=== PATIENT | female | born 1970 | race African-American/Black ===

== ENCOUNTER 2018-03-30 07:44 | Inpatient (IN) | payer MEDICARE ==
[2018-03-30] VITALS (8 sets, daily range): BP systolic 92–105; BP diastolic 47–70
[~2018-03-30] VITALS: Ht 175.3 cm; Wt 102.1 kg
[2018-03-30] MEDS ORDERED: ABILIFY20 MG PO (10:44)
[2018-03-30] MEDS ORDERED: CYMBALTA60 MG (10:49)
[2018-03-30] MEDS ORDERED: CATAPRES0.2 MG PO (10:49)
[2018-03-30] MEDS ORDERED: CYCLOBENZAPRINE10 MG (10:50)
[2018-03-30] MEDS ORDERED: DEPAKOTE500 MG PO (10:50)
[2018-03-30] MEDS ORDERED: CARDIZEM60 MG (10:50)
[2018-03-30] MEDS ORDERED: LASIX80 MG PO (10:51)
[2018-03-30] MEDS ORDERED: HYDRALAZINE HCL10 MG PO (10:51)
[2018-03-30] MEDS ORDERED: LEVEMIR100 U/M1 SQ (10:52)
[2018-03-30] MEDS ORDERED: METOPROLOL TART50 MG PO (10:53)
[2018-03-30] MEDS ORDERED: LYRICA300 MG PO (10:53)
[2018-03-30] MEDS ORDERED: GLUCOPHAGE500 MG PO (10:53)
[2018-03-30] MEDS ORDERED: NIFEDIPINE ER90 MG PO (10:54)
[2018-03-30] MEDS ORDERED: KLOR-CON M2020 MEQ PO (10:54)
[2018-03-30] MEDS ORDERED: SEROQUEL200 MG PO (10:55)
[2018-03-30 20:17] LABS: BASOPHILS 0.1 % (0-2); EOSINOPHILS 4.2 % (0-7); HEMATOCRIT 34.9 % (36.0-48.0); IMMATURE GRANULOCYTES 0.4 % (0-5); LYMPHOCYTES 30.3 % (15-50); MCH 30.6 pg (26.0-34.0); MCHC 34.4 g/dL (31.0-37.0); MEAN PLATELET VOLUME 10.3 fL (7.4-10.4); MONOCYTES 6.1 % (2-11); NEUTROPHILS 58.9 % (40-80); PLATELET COUNT 199 10x3/uL (130-400); RBC 3.92 10x6/uL (4.00-5.40); RDW 12.9 % (11.5-14.5); WBC 7.4 10x3/uL (4.8-10.8)
[2018-03-30 20:48] LABS: ALBUMIN 3.6 g/dL (3.4-5.0); ALKALINE PHOSPHATASE 115 U/L (46-116); ALT (SGPT) 59 U/L (10-68); BILIRUBIN - TOTAL 0.64 mg/dL (0.2-1.3); CALC OSMOLALITY 297 mosm/kg (275-300); CALCIUM 8.9 mg/dL (8.5-10.1); CARBON DIOXIDE 31.2 mmol/L (21.0-32.0); CHLORIDE - SERUM 97 mmol/L (98-107); CREATININE - SERUM 1.3 mg/dL (0.6-1.3); GLUCOSE 360 mg/dL (74-106); POTASSIUM - SERUM 3.7 mmol/L (3.5-5.1); PROTEIN - SERUM 7.2 g/dL (6.4-8.2); SODIUM 140 mmol/L (136-145); UREA NITROGEN 24 mg/dL (7-18); eGFR NON AFRICAN AMERICAN 47 mL/min (90-120)
[2018-03-30 21:00] LABS: AMYLASE - SERUM 34 U/L (25-115); CKMB 0.8 U/L (0.0-3.6); LIPASE 179 U/L (73-393); MAGNESIUM - SERUM 1.7 mg/dL (1.8-2.4); THYROID STIMULATING HORMONE 2.78 uIU/mL (0.36-3.74); TROPONIN-I < 0.017 ng/mL (0.000-0.060)
[2018-03-30 21:06] LABS: KETONE - SERUM NEGATIVE (NEGATIVE)
[2018-03-31] VITALS (8 sets, daily range): BP systolic 87–132; BP diastolic 45–75; Ht 175.3 cm; Wt 102.1 kg
[2018-03-31 01:26] LABS: APPEARANCE CLEAR (CLEAR); COLOR YELLOW (YELLOW)
[2018-03-31 01:27] LABS: BILIRUBIN NEGATIVE (NEGATIVE); GLUCOSE 1000 mg/dL (NEGATIVE); KETONE NEGATIVE (NEGATIVE); NITRITE NEGATIVE (NEGATIVE); PROTEIN NEGATIVE (NEGATIVE); SPECIFIC GRAVITY 1.005 (1.005-1.020); UROBILINOGEN NORMAL (NORMAL)
[2018-03-31 01:28] LABS: BACTERIA FEW /hpf (NONE SEEN); EPITHELIAL CELLS 0-5 /hpf (0-5); RED CELLS - URINE 0-5 /hpf (0-5); WHITE CELLS - URINE 0-5 /hpf (0-5)
[2018-03-31 05:17] LABS: BASOPHILS 0.1 % (0-2); EOSINOPHILS 4.6 % (0-7); HEMATOCRIT 33.3 % (36.0-48.0); HEMOGLOBIN 11.5 g/dL (12-16); IMMATURE GRANULOCYTES 0.3 % (0-5); MCH 30.7 pg (26.0-34.0); MCHC 34.5 g/dL (31.0-37.0); MCV 88.8 fL (80.0-100.0); MEAN PLATELET VOLUME 10.3 fL (7.4-10.4); MONOCYTES 7.3 % (2-11); NEUTROPHILS 55.7 % (40-80); PLATELET COUNT 202 10x3/uL (130-400); RBC 3.75 10x6/uL (4.00-5.40); RDW 12.9 % (11.5-14.5); WBC 7.4 10x3/uL (4.8-10.8)
[2018-03-31 07:21] LABS: CALC OSMOLALITY 288 mosm/kg (275-300); CALCIUM 8.7 mg/dL (8.5-10.1); CARBON DIOXIDE 26.5 mmol/L (21.0-32.0); CHLORIDE - SERUM 98 mmol/L (98-107); GLUCOSE 313 mg/dL (74-106); SODIUM 137 mmol/L (136-145); UREA NITROGEN 20 mg/dL (7-18)
[2018-03-31 07:25] LABS: CREATININE - SERUM 0.8 mg/dL (0.6-1.3); POTASSIUM - SERUM 4.3 mmol/L (3.5-5.1); eGFR NON AFRICAN AMERICAN 82 mL/min (90-120)
[2018-04-01] VITALS (7 sets, daily range): BP systolic 107–157; BP diastolic 64–91
[2018-04-01 06:21] LABS: CARBON DIOXIDE 26.9 mmol/L (21.0-32.0); CHLORIDE - SERUM 101 mmol/L (98-107); CREATININE - SERUM 0.7 mg/dL (0.6-1.3); POTASSIUM - SERUM 4.2 mmol/L (3.5-5.1); SODIUM 137 mmol/L (136-145); eGFR NON AFRICAN AMERICAN > 90 mL/min (90-120)
[2018-04-01 06:24] LABS: CALC OSMOLALITY 280 mosm/kg (275-300); GLUCOSE 205 mg/dL (74-106); UREA NITROGEN 14 mg/dL (7-18)
[2018-04-01 07:24] LABS: BASOPHILS 0.3 % (0-2); EOSINOPHILS 4.7 % (0-7); HEMATOCRIT 33.7 % (36.0-48.0); HEMOGLOBIN 11.8 g/dL (12-16); IMMATURE GRANULOCYTES 0.5 % (0-5); LYMPHOCYTES 38.3 % (15-50); MCH 30.9 pg (26.0-34.0); MCV 88.2 fL (80.0-100.0); MONOCYTES 6.3 % (2-11); NEUTROPHILS 49.9 % (40-80); PLATELET COUNT 197 10x3/uL (130-400); RBC 3.82 10x6/uL (4.00-5.40); RDW 12.7 % (11.5-14.5); WBC 6.6 10x3/uL (4.8-10.8)
[2018-04-02 04:55] VITALS: BP 157/97
[2018-04-02 05:44] LABS: BASOPHILS 0.3 % (0-2); EOSINOPHILS 3.6 % (0-7); HEMATOCRIT 35.6 % (36.0-48.0); HEMOGLOBIN 12.2 g/dL (12-16); IMMATURE GRANULOCYTES 0.4 % (0-5); LYMPHOCYTES 29.2 % (15-50); MCH 30.8 pg (26.0-34.0); MCHC 34.3 g/dL (31.0-37.0); MCV 89.9 fL (80.0-100.0); MEAN PLATELET VOLUME 10.7 fL (7.4-10.4); MONOCYTES 6.7 % (2-11); NEUTROPHILS 59.8 % (40-80); PLATELET COUNT 208 10x3/uL (130-400); RBC 3.96 10x6/uL (4.00-5.40); RDW 13.1 % (11.5-14.5)
[2018-04-02 05:50] LABS: WBC 9.4 10x3/uL (4.8-10.8)
[2018-04-02 06:18] LABS: CALC OSMOLALITY 282 mosm/kg (275-300); CALCIUM 9.1 mg/dL (8.5-10.1); CARBON DIOXIDE 26.5 mmol/L (21.0-32.0); CHLORIDE - SERUM 102 mmol/L (98-107); CREATININE - SERUM 0.8 mg/dL (0.6-1.3); GLUCOSE 213 mg/dL (74-106); POTASSIUM - SERUM 3.9 mmol/L (3.5-5.1); SODIUM 138 mmol/L (136-145); UREA NITROGEN 16 mg/dL (7-18); eGFR NON AFRICAN AMERICAN 82 mL/min (90-120)
[2018-04-02 09:15] VITALS: BP 132/80
[2018-04-02] MEDS ORDERED: LEVEMIR100 U/M1 SC (09:44)
[2018-04-02] MEDS ORDERED: KEFLEX500 MG PO (09:50)
== END 2018-04-02 15:21 | disposition home health service (06) | DRG 683 ==
LOC: D.ER 07:44 → D.EDHOLD 08:14 → D.MS 08:14
PROVIDERS: Internal Medicine Nephrology
DX: N17.9 Acute kidney failure, unspecified (principal); E87.1 Hypo-osmolality and hyponatremia; E11.65 Type 2 diabetes mellitus with hyperglycemia; E11.40 Type 2 diabetes mellitus with diabetic neuropathy, unspecified; Z79.4 Long term (current) use of insulin; R33.9 Retention of urine, unspecified; E87.5 Hyperkalemia; F41.8 Other specified anxiety disorders; N30.90 Cystitis, unspecified without hematuria; I08.1 Rheumatic disorders of both mitral and tricuspid valves